=== PATIENT | female | born 2000 | race Caucasian/White ===

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

== ENCOUNTER 2022-09-28 21:07 | Inpatient (IN) | payer OTHER ==
[~2022-09-28] VITALS: Ht 154.9 cm; Wt 56.4 kg
--- NOTE | 2022-09-28 22:23 | NUR ---
SE RECIBE FEMINA ALERTA Y ORIENTADA X3 CON MAMA QUIEN REFIERE DIARREAS X5 VERBALIZA QUE FUE A NATHAN Y QUE LE PUSIERON IVAN Y TORADOL SIN EMBARGO SIGUE CON DIARREAS Y NO LE RECETARON NADA. SE MIDEN S/V, EN EL MOMENTO FIEBRE DE 103 SE ADMINISTRA 1000 MG DE TYLENOL YA QUE NO JESSICA TAB.
--- NOTE | 2022-09-28 23:08 | NUR ---
PACIENTE EVALUADA POR LA .ELHAM QUIEN ORDENA TRATAMIENTO MEDICO. SE REALIZAN MUESTRAS BAJO MEDIDAS ASEPTICAS Y ADMINISTRAN COLETTE ORDEN. SE ORIENTA SOBRE CT PO. SE HACE ENTREGA ENVASE OCCULT.
--- NOTE | 2022-09-29 04:14 | NUR ---
SE LLAMA EN MULTIPLES OCACIONES A RADIOLOGO DE TURNO PARA LECTURA DE CT SIN EXITO.
--- NOTE | 2022-09-29 08:06 | NUR ---
SE RECIBE PTE. DEL TURNO ANTERIOR EN RODGER CON BARRANDAS ELEVADAS ACOMPANADA DE FAMILIAR IVF PATENTE, CONTINUA CON DIARREAS. NO VOMITO. DRA. VELASQUEZ RE-EVALUA PTE. SE OSORIO PTE. BOJA OBSERVACION POR CAMBIO.
--- NOTE | 2022-09-29 08:31 | NUR ---
. VELASQUEZ ADMTE PTE. A SERVICIO DE DR. DAWN. SE ORIENTA SOBRE TRATAMIENTO, MEDICAMENTOS Y ADMISION. ORDENS DE ADMISION TOMADAS. FAMILIAR HACE ARREGLOS DE ADMISION.SE ORIENTA A COGER MUESTRAS DE ESCRETA. SE OSORIO PTE. BAJO OBSERVACION POR CAMBIO.
[2022-10-10] MEDS ORDERED: SURFAK240 M1 PO (08:38)
[2022-10-10] MEDS ORDERED: IRON325 MG PO (08:38)
== END 2022-10-10 09:52 | disposition home or self-care (01) | DRG 392 ==
LOC: EMR PED 21:07 → PED 09-29 08:32
PROVIDERS: ADMIT Emergency Medicine; ATTEND Emergency Medicine
PROC: B34KZZZ Ultrasonography of Bilateral Upper Extremity Arteries (ICD-10-PCS; principal; 2022-10-07)
PROC: B54PZZZ Ultrasonography of Bilateral Upper Extremity Veins (ICD-10-PCS; 2022-10-07)
DX: K52.89 Other specified noninfective gastroenteritis and colitis (principal); B81.8 Other specified intestinal helminthiases; D50.0 Iron deficiency anemia secondary to blood loss (chronic); B82.9 Intestinal parasitism, unspecified; D50.9 Iron deficiency anemia, unspecified